=== PATIENT | male | born 1975 | race Two or more races ===

== ENCOUNTER 2018-08-30 06:42 | Emergency (ER) | payer SELFPAY ==
[~2018-08-30] VITALS: Ht 175.3 cm; Wt 88.0 kg
[2018-08-30 06:53] VITALS: BP 143/98
== END 2018-08-30 10:40 | disposition home or self-care (01) ==
LOC: ER 06:42
DX: F41.9 Anxiety disorder, unspecified (principal); G89.29 Other chronic pain; M25.561 Pain in right knee; F43.10 Post-traumatic stress disorder, unspecified; Z96.651 Presence of right artificial knee joint; Z87.828 Personal history of other (healed) physical injury and trauma
CPT/HCPCS: 99283; 99284